=== PATIENT | male | born 1995 | race Two or more races ===

== ENCOUNTER 2021-01-18 07:23 | Emergency (ER) | payer MEDICAID ==
[~2021-01-18] VITALS: Ht 177.8 cm; Wt 99.5 kg
[2021-01-18] MEDS ORDERED: LORazepam 1MG TABLET ONE (07:48)
[2021-01-18 07:50] LABS: BASOPHILS % (AUTO) 1 % (0-1); EOSINOPHILS % (AUTO) 3 % (1-7); LYMPHOCYTES % (AUTO) 23 % (22-44); MEAN CORPUSCULAR HEMOGLOBIN 33.9 pg (27.5-34.5); MEAN CORPUSCULAR HGB CONC 35.3 g/dL (33.2-36.2); MEAN PLATELET VOLUME 7.7 fL (7.4-10.4); MONOCYTES % (AUTO) 9 % (2-9); NEUTROPHILS % (AUTO) 64 % (42-75); PLATELET COUNT 219 x10^3/uL (130-400); RED BLOOD COUNT 5.21 x10^6/uL (4.38-5.82); RED CELL DISTRIBUTION WIDTH 13.3 % (9.4-14.8)
[2021-01-18] MEDS ORDERED: NEOSPORIN OINT. PKT 1 PACKET ONE (07:58)
[2021-01-18 08:00] LABS: ALANINE AMINOTRANSFERASE 37 U/L (12-78); ALBUMIN 3.7 g/dL (3.4-5.0); ANION GAP 11 mmol/L (5-15); CALCIUM 8.7 mg/dL (8.5-10.1); CHLORIDE 107 mmol/L (98-107); CREATININE 1.13 mg/dL (0.7-1.3)
[2021-01-18] MEDS ORDERED: LORazepam 1MG TABLET PO ONE (08:00)
[2021-01-18] MEDS ORDERED: DIPH,PERTUSS(ACELL),TET VAC/PF 0.5 ML IM-VACC ONE ×2 (08:00→08:07)
[2021-01-18 08:03] LABS: ALKALINE PHOSPHATASE 46 U/L (45-117); BILIRUBIN,TOTAL 0.9 mg/dL (0.2-1.0); TOTAL PROTEIN 7.4 g/dL (6.4-8.2)
[2021-01-18] MEDS ORDERED: THIAMINE 100MG TABLET ONE (08:50)
[2021-01-18] MEDS ORDERED: THIAMINE 100MG TABLET PO ONE (09:00)
[2021-01-18 09:07] VITALS: BP 112/77
--- NOTE | 2021-01-18 09:08 | NUR ---
PT REC'VD DISCHARGE INSTRUCTIONS AND EDUCATION. PT HAD NO FURTHERS QUESTIONS.
--- NOTE | 2021-01-18 09:21 | NUR ---
PT AMBULATED TO SD AREA, STEADY GAIT
== END 2021-01-18 09:49 | disposition home or self-care (01) ==
LOC: ED 07:49
DX: R56.9 Unspecified convulsions (principal); F10.139 Alcohol abuse with withdrawal, unspecified; R55 Syncope and collapse; R94.31 Abnormal electrocardiogram [ECG] [EKG]; Y90.0 Blood alcohol level of less than 20 mg/100 ml
CPT/HCPCS: 36415; 80053; 85025; 90471; 90715; 93005; 99284